=== PATIENT | female | born 1980 | race Caucasian/White ===

== ENCOUNTER → 2018-07-15 | Outpatient (CLI) | payer SELFPAY ==
[2018-07-16 23:10] LABS: CHLAMYDIA TRACHOMATIS, NAA Negative (Negative); NEISSERIA GONORRHOEAE, NAA Negative (Negative)
== END | disposition home or self-care (01) ==
LOC: LAB SHORT 09:18 → LAB 09:18
PROVIDERS: Obstetrics & Gynecology
DX: O09.523 Supervision of elderly multigravida, third trimester (principal); Z3A.36 36 weeks gestation of pregnancy
CPT/HCPCS: 87081; 87653

== ENCOUNTER 2018-08-03 20:26 | Inpatient (IN) | payer OTHER ==
[~2018-08-03] VITALS: Ht 154.9 cm; Wt 69.8 kg
[2018-08-03] MEDS ORDERED: Verotin-Gr Cap1 EACH PO (20:55)
[2018-08-03 21:04] LABS: BASOPHILS ABSOLUTE AUTO 0.07 K/mm3 (0.00-0.23); BASOPHILS PERCENT AUTO 0 % (0-2); EOSINOPHILS ABSOLUTE AUTO 0.08 K/mm3 (0.00-0.68); EOSINOPHILS PERCENT AUTO 0 % (0-6); Hematocrit 38.7 % (33.0-51.0); Hemoglobin 13.1 g/dL (11.5-16.0); IMMATURE GRAN ABSOLUTE AUTO 0.09 K/mm3 (0.00-0.10); IMMATURE GRAN PERCENT AUTO 1 % (0-1); LYMPHOCYTES PERCENT AUTO 10 % (21-46); MONOCYTES ABSOLUTE AUTO 0.69 K/mm3 (0.16-1.47); MONOCYTES PERCENT AUTO 4 % (4-13); Mean Corpuscular HGB 33.9 pg (26.0-34.0); Mean Corpuscular HGB Conc 33.9 g/dL (31.5-36.5); Mean Corpuscular Volume 100 fL (80-100); Mean Platelet Volume 9.2 fL (9.1-12.4); NEUTROPHILS PERCENT AUTO 85 % (41-73); Platelet Count 352 K/mm3 (150-400); RDW Coefficient Variation 11.9 % (11.7-14.2); RDW Standard Deviation 43.6 fL (35.1-46.3); Red Blood Cell Count 3.87 M/mm3 (3.80-5.20); White Blood Cell Count 18.23 K/mm3 (4.00-11.30)
--- NOTE | 2018-08-04 05:11 | NUR ---
08-04-18 0300 PT SLEEP AND SNORING WITH BABY ASLEEP IN CRIB
--- NOTE | 2018-08-04 05:12 | NUR ---
08-04-18 0400 PT AWAKENED TO FEED BABY AT BREAST
[2018-08-04 06:14] LABS: BASOPHILS ABSOLUTE AUTO 0.03 K/mm3 (0.00-0.23); BASOPHILS PERCENT AUTO 0 % (0-2); EOSINOPHILS ABSOLUTE AUTO 0.07 K/mm3 (0.00-0.68); EOSINOPHILS PERCENT AUTO 1 % (0-6); Hematocrit 35.2 % (33.0-51.0); Hemoglobin 11.8 g/dL (11.5-16.0); IMMATURE GRAN ABSOLUTE AUTO 0.08 K/mm3 (0.00-0.10); IMMATURE GRAN PERCENT AUTO 1 % (0-1); LYMPHOCYTES ABSOLUTE AUTO 2.49 K/mm3 (0.84-5.20); LYMPHOCYTES PERCENT AUTO 17 % (21-46); MONOCYTES ABSOLUTE AUTO 1.07 K/mm3 (0.16-1.47); MONOCYTES PERCENT AUTO 7 % (4-13); Mean Corpuscular HGB 33.1 pg (26.0-34.0); Mean Corpuscular HGB Conc 33.5 g/dL (31.5-36.5); Mean Corpuscular Volume 99 fL (80-100); Mean Platelet Volume 9.2 fL (9.1-12.4); NEUTROPHILS ABSOLUTE AUTO 11.32 K/mm3 (1.96-9.15); NEUTROPHILS PERCENT AUTO 75 % (41-73); Platelet Count 316 K/mm3 (150-400); RDW Coefficient Variation 11.8 % (11.7-14.2); RDW Standard Deviation 43.2 fL (35.1-46.3); Red Blood Cell Count 3.57 M/mm3 (3.80-5.20); White Blood Cell Count 15.06 K/mm3 (4.00-11.30)
--- NOTE | 2018-08-05 08:10 | NUR ---
to pt room, pt in bathroom baby sleeping in crib
--- NOTE | 2018-08-05 09:20 | NUR ---
pt wanting to go home today, ready anytime, dr donato seeing baby
--- NOTE | 2018-08-05 11:00 | NUR ---
WELL. PT DENIES ANY PAIN, RIDE IS HERE, PT HAS COPY OF DC INSTRUCTIONS
== END 2018-08-05 11:00 | disposition home or self-care (01) | DRG 807 ==
LOC: BC 20:26 → OBS 20:26 → BC 20:29 → OBS 20:39 → BC 20:40
PROVIDERS: ADMIT Obstetrics & Gynecology
PROC: 10E0XZZ Delivery of Products of Conception, External Approach (ICD-10-PCS; principal; 2018-08-03)
DX: O99.334 Smoking (tobacco) complicating childbirth (principal); Z37.0 Single live birth; F17.200 Nicotine dependence, unspecified, uncomplicated; Z3A.39 39 weeks gestation of pregnancy
CPT/HCPCS: 36415; 85025; J1885; J2590; J7120

== ENCOUNTER 2018-10-07 11:54 | Day surgery (SDC) | payer OTHER ==
[~2018-10-07] VITALS: Ht 154.9 cm; Wt 64.4 kg
[~2018-10-07 11:54] MED LIST: Verotin-Gr Cap1 EACH PO
[2018-10-07] MEDS ORDERED: MAGOXI400 PO (12:09)
[2018-10-07] MEDS ORDERED: CALCIUM (12:09)
--- NOTE | 2018-10-07 12:15 | NUR ---
10/07/18 1215 Kaitlin Rey 1ST IV ATTEMPT IN LH INFILTRATED, STARTED BY YUE MARTINEZ 2ND IV ATTEMPT IN LFA SUCCUSSFUL, STARTED BY JUAN TURNER
--- NOTE | 2018-10-07 13:48 | NUR ---
10/07/18 1348 Geovanna Alvarado SCATTERED RHONCHI BILAT LUNGS, CLEARING WITH COUGH. PRODUCTIVE COUGH WITH CLEAR SPUTUM SATS 98% ON RA
--- NOTE | 2018-10-07 14:54 | NUR ---
10/07/18 0096 Geovanna Alvarado HOME WITH INSTRUCTIONS FOR CARE AND F/U. PIOTR PO SNACK AND FLUIDS WELL. RX FOR PERCOCET AND MOTRIN GIVEN FOR PT TO FILL. TO CAR W/SBA X1
== END 2018-10-07 14:48 | disposition home or self-care (01) ==
LOC: ORSCSDS 11:54
PROVIDERS: Obstetrics & Gynecology
PROC: 0UT74ZZ Resection of Bilateral Fallopian Tubes, Percutaneous Endoscopic Approach (ICD-10-PCS; principal; 2018-10-07 12:00)
DX: Z30.2 Encounter for sterilization (principal); F17.210 Nicotine dependence, cigarettes, uncomplicated; J45.909 Unspecified asthma, uncomplicated; Z79.899 Other long term (current) drug therapy
CPT/HCPCS: 88302; J0330; J1100; J1885; J2250; J2405; J3010; J7120